=== PATIENT | male | born 1960 | race Two or more races ===

== ENCOUNTER → 2019-05-20 | Outpatient (CLI) | payer MEDICARE, MEDICAID ==
[2019-05-20 11:51] LABS: ALBUMIN 4.1 g/dL (3.5-5.0); ALKALINE PHOSPHATASE 75 U/L (38-126); ANION GAP 11 (5-19); ASPARTATE AMINO TRANSFERASE 28 U/L (17-59); BILIRUBIN,DIRECT 0.2 mg/dL (0.0-0.4); BILIRUBIN,TOTAL 0.3 mg/dL (0.2-1.3); BLOOD UREA NITROGEN 65 mg/dL (7-20); CALCIUM 8.8 mg/dL (8.4-10.2); CARBON DIOXIDE 21 mmol/L (22-30); CHLORIDE 111 mmol/L (98-107); CHOLESTEROL 93.42 mg/dL (0-200); GLUCOSE 138 mg/dL (75-110); TRIGLYCERIDES 63 mg/dL (<150)
[2019-05-20 12:02] LABS: DIRECT LDL 55 mg/dL (<100)
[2019-05-21 10:36] LABS: CREATININE URINE 74.5 mg/dL (Not Estab.)
[2019-05-21 11:08] LABS: MICROALBUMIN URINE 1205.1 ug/mL (Not Estab.)
== END ==
LOC: OD 10:45
PROVIDERS: ATTEND Family Medicine
DX: E78.5 Hyperlipidemia, unspecified (principal); E11.59 Type 2 diabetes mellitus with other circulatory complications; E03.9 Hypothyroidism, unspecified
CPT/HCPCS: 80053; 80061; 82043; 82570; 83036; 84443